=== PATIENT | male | born 1970 | race Caucasian/White ===

== ENCOUNTER 2017-07-18 16:40 | Emergency (ER) | payer OTHER ==
[~2017-07-18] VITALS: Ht 177.8 cm; Wt 65.8 kg
[2017-07-18] MEDS ORDERED: SODIUM CHLORIDE 0.9% 1,000 ML IV ONE (16:52)
[2017-07-18 17:41] LABS: Hematocrit 23.3 % (41.0-53.0); Hemoglobin 7.2 g/dL (13.5-17.5); Mean Corpuscular Hemoglobin 27.1 pg (28.0-32.0); Mean Corpuscular Hgb Conc. 31.1 g/dL (32.0-36.0); Mean Corpuscular Volume 87.1 fL (80.0-100.0); Mean Platelet Volume 8.6 fL (6.9-10.8); Platelet Count (auto) 308 10^3/uL (140-450); White Blood Cell 25.8 10^3/uL (4.4-10.8)
[2017-07-18 17:46] LABS: BUN/Creatinine Ratio 17.5; Calcium 8.9 mg/dL (8.5-10.1); Potassium 3.8 mmol/L (3.5-5.1)
[2017-07-18 17:48] LABS: Red Cell Distribution Width 20.3 % (11.8-14.3)
[2017-07-18 17:49] LABS: Bilirubin, Total 0.3 mg/dL (0.2-1.0); Promyelocytes % 0; Total Protein 9.2 g/dL (6.4-8.2)
[2017-07-18 18:29] LABS: Urine RBC None Seen /hpf (0 - 3)
[2017-07-18 18:47] LABS: Urine Bilirubin Negative (Negative); Urine Blood Negative /uL (Negative); Urine Color Yellow (Yellow); Urine Glucose Normal (Normal); Urine Ketone Negative (Negative); Urine Nitrite Negative (Negative); Urine Squamous Epithelial Cell FEW /hpf (<5); Urine Urobilinogen Normal (Negative)
[2017-07-18] MEDS ORDERED: cefTRIAXone 1GM/50ML D5W 50 ML IV ONE (19:45)
[2017-07-18 21:46] VITALS: BP 143/83
[2017-07-18 23:25] LABS: Metamyelocytes % 3; Myelocytes % 2; Reactive Lymphocytes 5
[2017-07-18 23:27] LABS: Anisocytosis Moderate; Ovalocytes FEW; Platelet Estimate Adequate; Stomatocytes Few
== END 2017-07-18 22:13 | disposition short-term general hospital (02) ==
LOC: ER 16:40
DX: D47.1 Chronic myeloproliferative disease (principal); D64.9 Anemia, unspecified; I10 Essential (primary) hypertension; D47.3 Essential (hemorrhagic) thrombocythemia; Z88.8 Allergy status to other drugs, medicaments and biological substances
CPT/HCPCS: 36415; 71010; 80053; 81001; 83605; 85007; 85027; 85060; 87040; 87086; 96361; 96365; 96366; 99291; J0696; J7030

== ENCOUNTER 2017-11-13 11:57 | Emergency (ER) | payer OTHER ==
[~2017-11-13] VITALS: Ht 177.8 cm; Wt 61.2 kg
[2017-11-13 12:30] VITALS: BP 158/99
[2017-11-13 12:56] LABS: Basophils # (auto) 0 uL; Eosinophils # (auto) 0 uL; Hemoglobin 11.6 g/dL (13.5-17.5); Lymphocytes # (auto) 0.3 uL; White Blood Cell 2.6 10^3/uL (4.4-10.8)
[2017-11-13 13:00] LABS: Eosinophils % (auto) 0.4 % (0.0-7.0); Hematocrit 34.7 % (41.0-53.0); Mean Corpuscular Hemoglobin 35.8 pg (28.0-32.0); Mean Corpuscular Hgb Conc. 33.4 g/dL (32.0-36.0); Mean Corpuscular Volume 107.1 fL (80.0-100.0); Monocytes # (auto) 0.4 uL; Monocytes % (auto) 15.7 % (0.0-12.0); Neutrophils # (auto) 1.9 uL; Neutrophils % (auto) 72.9 % (37.0-80.0); Nucleated Red Blood Cells % 0.3 %; Platelet Count (auto) 166 10^3/uL (140-450); Red Blood Cells 3.24 10^6/uL (4.5-5.90); Red Cell Distribution Width 22.3 % (11.8-14.3)
[2017-11-13 13:14] LABS: Albumin 4.4 g/dL (3.4-5.0); BUN/Creatinine Ratio 23.7; Calcium 10.3 mg/dL (8.5-10.1); Potassium 3.3 mmol/L (3.5-5.1)
[2017-11-13 13:17] LABS: Urine Bacteria FEW /hpf (None Seen); Urine Blood Negative /uL (Negative); Urine Mucus FEW (None Seen); Urine WBC 2 /hpf (0 - 3)
[2017-11-13 13:18] LABS: Bilirubin, Total 0.6 mg/dL (0.2-1.0); Total Protein 8.8 g/dL (6.4-8.2)
[2017-11-13] MEDS ORDERED: POTASSIUM CHL 10% (20 MEQ/15ML) 15ml ORAL SOLN PO ONE (14:00)
[2017-11-13] MEDS ORDERED: TETANUS-DIPTH-ACEL PERTUSSIS 0.5ML SYRG IM ONE (14:00)
== END 2017-11-13 14:33 ==
LOC: ER 11:57
DX: S00.212A Abrasion of left eyelid and periocular area, initial encounter (principal); E87.6 Hypokalemia; C95.90 Leukemia, unspecified not having achieved remission; I10 Essential (primary) hypertension; Z88.1 Allergy status to other antibiotic agents; X58.XXXA Exposure to other specified factors, initial encounter; Y93.89 Activity, other specified; Y99.8 Other external cause status; Y92.89 Other specified places as the place of occurrence of the external cause
CPT/HCPCS: 36415; 80053; 81001; 85025; 90471; 90715